=== PATIENT | female | born 1960 | race Caucasian/White ===

== ENCOUNTER 2019-05-30 11:06 | Emergency (ER) | payer MEDICARE, MEDICAID ==
[~2019-05-30] VITALS: Ht 152.4 cm; Wt 67.1 kg
[2019-05-30 11:25] VITALS: BP 147/91
[2019-05-30 11:39] VITALS: BP 147/91
[2019-05-30 11:42] VITALS: BP 147/91
--- NOTE | 2019-05-30 12:49 | DIREP ---
PROCEDURE:XRAY HAND MIN 3 VW-RT COMPARISON:None. INDICATIONS:FALL FINDINGS: BONES:Normal. JOINTS:Degenerative changes at the base of the thumb. SOFT TISSUES:Normal. OTHER:No additional findings. CONCLUSION:No evidence of fracture Dictated by: Kris Castillo M.D. on 05/30/2019 at 12:45 PM
--- NOTE | 2019-05-30 13:09 | ER.PDOC ---
General Chief Complaint: Extremities Stated Complaint: HAND INJURY Time seen by MD: 13:11 Source: patient Exam Limitations: no limitations History of Present Illness Occurred: yesterday Where: home Severity: mild Context: fall Location of Injury: (R) hand Modifying Factors: pain on movement Allergies: Coded Allergies: gabapentin (Verified Allergy, Unknown, MEMORY LOSS, 05/30/19) Past Medical History LMP (females 10-50): postmenopause Social History Smoking: non-smoker Alcohol Use: none Drug Use: none Reviewed Nursing Reviewed: Vital Signs, Abn. Noted Review of Systems All Other Systems: Reviewed and Negative Physical Exam General Appearance: Alert, No Apparent Distress Hand: see diagram, tenderness 1 - TENDER 1 - TENDERNESS Neuro: sensation nml, motor nml Vascular: no vascular compromise Tendons: tendon function nml Forearm/Elbow/Arm: uninjured above wrist Skin: warm/dry Head/ENT: nml inspection, pharynx nml Neck/Back: nml inspection, non-tender Resp/CVS: no resp distress, lungs clear, heart sounds nml, reg. rate & rhythm Abdomen: non-tender, no organomegaly Results/Orders Results/Orders Orders - KIERAN SAMUELS MD Xr Hand Rt (05/30/19 12:25) Vital Signs Date Time Temp Pulse Resp B/P (MAP) Pulse Ox O2 Delivery O2 Flow Rate FiO2 05/30/19 11:42 98.3 75 17 147/91 (109) 98 Room Air 05/30/19 11:39 98.3 75 17 05/30/19 11:25 98.3 75 17 98 Room Air Departure Time of Disposition: 13:33 Disposition: 01 HOME, SELF-CARE Impression: Primary Impression: CONTUSION OF RIGHT HAND, INITIAL ENCOUNTER Condition: Stable Referrals: PCP,UNKNOWN (PCP) PRIMARY CARE PROVIDER Duration or Time Spent with Pa: 20 MIN KIERAN SAMUELS MD May 30, 2019 13:09
== END 2019-05-30 13:33 | disposition home or self-care (01) ==
LOC: ER 11:06
DX: S60.221A Contusion of right hand, initial encounter (principal); Z88.8 Allergy status to other drugs, medicaments and biological substances; W19.XXXA Unspecified fall, initial encounter; Y93.89 Activity, other specified; Y92.098 Other place in other non-institutional residence as the place of occurrence of the external cause; Y99.8 Other external cause status
CPT/HCPCS: 29125; 99282; 99283; 73130-RT